=== PATIENT | male | born 1980 | race African-American/Black ===

== ENCOUNTER 2019-08-16 20:47 | Emergency (ER) | payer OTHER ==
[~2019-08-16] VITALS: Ht 182.9 cm; Wt 98.4 kg
[2019-08-16 21:00] LABS: MCHC 33.7 g/dL (28.0-37.0); WBC 4.6 thou/uL (4.0-11.0)
[2019-08-16 21:02] LABS: HEMATOCRIT 48.2 % (42.0-52.0); HEMOGLOBIN 16.2 gm/dL (14.0-18.0); MCH 33.2 pg (26.0-34.0); MCV 98.7 fL (80.0-100.0); PLATELET COUNT 217 thou/uL (150-400); RBC 4.88 mil/uL (4.50-6.00); RDW 12.7 % (10.5-14.5)
[2019-08-16 21:17] LABS: ANION GAP 16 mmol/L (7-16); BUN 10 mg/dL (7-18); CALCIUM 9.6 mg/dL (8.5-10.1); CHLORIDE 99 mmol/L (98-107); CO2 20 mmol/L (21-32); CREATININE 1.1 mg/dL (0.7-1.3); GLUCOSE 111 mg/dL (74-106); POTASSIUM 3.2 mmol/L (3.5-5.1); SODIUM 135 mmol/L (136-145)
[2019-08-16 21:22] LABS: ALBUMIN 4.2 g/dL (3.4-5.0); MAGNESIUM 1.8 mg/dL (1.8-2.4); SALICYLATE < 2.8 mg/dL (2.8-20.0); SGOT 93 U/L (15-37); SGPT 182 U/L (30-65); TOTAL BILIRUBIN 0.3 mg/dL (<0.1-1.0); TOTAL PROTEIN 8.2 g/dL (6.4-8.2); TROPONIN-I <0.06 ng/mL (<0.06)
[2019-08-16 21:34] LABS: URINE BILIRUBIN NEGATIVE (Negative); URINE BLOOD NEGATIVE (Negative); URINE CLARITY CLEAR; URINE COLOR YELLOW; URINE GLUCOSE-RANDOM* NEGATIVE (Negative); URINE KETONES NEGATIVE (Negative); URINE LEUKOCYTES-REFLEX NEGATIVE (Negative); URINE NITRITE-REFLEX NEGATIVE (Negative); URINE PROTEIN (DIPSTICK) TRACE (Negative); URINE UROBILINOGEN 0.2 E.U./dl (0.2-1.0)
[2019-08-16 21:36] LABS: ABSOLUTE NEUTROPHILS 1.8 thou/uL (1.4-8.2)
[2019-08-16 21:37] LABS: ANISOCYTOSIS 1+
[2019-08-16 21:42] LABS: AMP/METHAMP Negative (Negative); BARBITURATES Negative (Negative); BENZODIAZEPINES Negative (Negative); COCAINE POSITIVE (Negative); METHADONE Negative (Negative); OPIATES Negative (Negative); PCP Negative (Negative)
[2019-08-16] MEDS ORDERED: ONDANSETRON ODT8 MG PO (21:53)
[2019-08-16 22:08] VITALS: BP 170/90
[2019-08-16] MEDS ORDERED: NOHOMEMEDICATIONS (22:31)
--- NOTE | 2019-08-17 09:29 | EKG ---
[facility] [place] [address] ELECTROCARDIOGRAM REPORT Name: MIGUEL LASSITER Room #: [facility].#: [id number] Admission: 08/16/19 Attend Phys: Discharge: Date of : 76 Report #: [id number] THIS REPORT FOR: cc: SUSAN - Lynda family physician/PCP SUSAN - Lynda family physician/PCP Prashanth Sheridan MD [facility] THIS REPORT FOR: //name// [facility] ED Test Date: 2019-08-16 Test Time: 21:03:54 Pat Name: MIGUEL LASSITER Department: Room: Gender: Finished Goods Inspector: : 1980 Requested By: Rad Correia Order Number: [id number] MD: Prashanth Sheridan Measurements Intervals [place] Rate: 115 P: 35 NM: 158 QRS: -41 QRSD: 98 T: 31 QT: 336 QTc: 465 Interpretive Statements Sinus tachycardia Left axis deviation Poor R wave progression Baseline wander in lead(s) V1,V6 No previous ECG available for comparison Electronically Signed On 08-17-2019 9:28:13 CDT by Prashanth Sheridan [email or web address] <ELECTRONICALLY SIGNED> By: Prashanth Sheridan MD, [facility] 08/17/19 0928 02 02 Prashanth Sheridan MD, [facility] /EPI
== END 2019-08-16 22:13 | disposition home or self-care (01) ==
LOC: ER 20:47 → EDBD 20:47 → ER 22:13
PROVIDERS: Emergency Medicine
DX: R41.82 Altered mental status, unspecified (principal); R11.2 Nausea with vomiting, unspecified; R41.0 Disorientation, unspecified; F14.10 Cocaine abuse, uncomplicated; F10.129 Alcohol abuse with intoxication, unspecified; Y90.9 Presence of alcohol in blood, level not specified